=== PATIENT | male | born 1980 | race Caucasian/White ===

== ENCOUNTER 2022-02-06 04:08 | Emergency (ER) | payer SELFPAY ==
[~2022-02-06] VITALS: Ht 175.3 cm; Wt 90.7 kg
[2022-02-06 04:11] VITALS: BP 155/73
[2022-02-06] MEDS ORDERED: KETOROLAC 30 MG/ML VIAL IVP ONE (04:20)
[2022-02-06] MEDS ORDERED: PROPOFOL 200 MG/20 ML VIAL IV ONE ×2 (04:20→05:10)
[2022-02-06] MEDS ORDERED: NACL 0.9% 1,000 ML IV ONE (04:20)
--- NOTE | 2022-02-06 04:23 | NUR ---
PT TAKEN TO BED 10
--- NOTE | 2022-02-06 04:24 | NUR ---
PT TAKEN TO RADIOLOGY
--- NOTE | 2022-02-06 04:32 | NUR ---
PT RETURN FROM XRAY
--- NOTE | 2022-02-06 04:35 | NUR ---
41 Y.O. M C/O DISLOCATED RIGHT SHOULDER. HAS FREQUENT DISLOCATIONS. HAD BEEN PLANNING TO HAVE SURGERY. 05/05 PAIN IN THE R SHOULDER AND VISIBLY DSLOCATED. DENIES N/V/D, CHEST PAIN AND SOB. A&OX4, SKIN INTACT, VITALS WNL, AND STEADY GAIT.
--- NOTE | 2022-02-06 04:50 | NUR ---
CALLED TO BEDSIDE FOR CONSCIOUS SEDATION. PLACED PT ON O2 AND CO2 MONITORING. ALL EQUIPMENT SET, CHECKED AND AVAILABLE AT BEDSIDE. PROCEDURE STARTED @ 0457 AND ENDED @ 0504. RN WILL CONTINUE TO MONITOR PT.
--- NOTE | 2022-02-06 04:54 | NUR ---
Dr. Harry examining patient.
--- NOTE | 2022-02-06 05:09 | NUR ---
X-Ray at bedside.
[2022-02-06] MEDS ORDERED: NAPR-54 PO (05:15)
--- NOTE | 2022-02-06 05:20 | NUR ---
PT IS AWAKE IN BED. RELAXING AFTER PROCEDURE. ALL PTS NEEDS MEET AT THIS TIME.
[2022-02-06 06:35] VITALS: BP 142/75
--- NOTE | 2022-02-06 07:18 | NUR ---
Pt report given to KAREN AMADO. Transfer of care at this time.
--- NOTE | 2022-02-06 07:49 | NUR ---
Patient discharged with v/s stable. Written and verbal after care instructions given and explained. Patient verbalized understanding. Ambulatory with steady gait. All questions addressed prior to discharge. Advised to follow up with PMD. Pt. provided with an Uber, waiting in lobby ETA 4mins.
== END 2022-02-06 07:49 | disposition home or self-care (01) ==
LOC: EEVIPCON 04:08 → MED 04:08
DX: S43.084A Other dislocation of right shoulder joint, initial encounter (principal); Z79.899 Other long term (current) drug therapy; X58.XXXA Exposure to other specified factors, initial encounter; Y93.89 Activity, other specified; Y92.89 Other specified places as the place of occurrence of the external cause; Y99.8 Other external cause status
CPT/HCPCS: 23650; 73020; 94770; 96361; 96374; 99152; 99285; J1885; J2704; J7030; Q0092